=== PATIENT | male | born 1950 | race Caucasian/White ===

== ENCOUNTER 2018-03-24 11:28 | Observation (INO) | payer MEDICARE, OTHER ==
[2018-03-24 12:03] LABS: ADD MAN DIFF? NO
[2018-03-24] MEDS: NITROGLYCERIN 2% 1 GM OINT PKT TD (12:04)
[2018-03-24 12:22] LABS: ANION GAP 17 (8-16); BLOOD UREA NITROGEN 11 mg/dl (7-20); CALCIUM 9.1 mg/dl (8.4-10.2); CARBON DIOXIDE 19 mmol/L (21-31); CHLORIDE 107 mmol/L (97-110); CREATININE 0.88 mg/dl (0.61-1.24); GLUCOSE 138 mg/dl (70-220); POTASSIUM 4.5 mmol/L (3.5-5.1); SODIUM 138 mmol/L (135-144)
[2018-03-24 12:24] LABS: BASOPHILS % 0.2 % (0.0-2.0); EOSINOPHILS # 0.1 10^3/ul (0.0-0.5); EOSINOPHILS % 1.7 % (0.0-7.0); HEMATOCRIT 41.5 % (42.0-52.0); HEMOGLOBIN 14.2 g/dl (14.0-18.0); LYMPHOCYTES # 3.1 10^3/ul (0.8-2.9); LYMPHOCYTES % 38.2 % (15.0-51.0); MEAN CORPUSCULAR HEMOGLOBIN 30.8 pg (29.0-33.0); MEAN CORPUSCULAR HGB CONC 34.2 g/dl (32.0-37.0); MEAN PLATELET VOLUME 9.9 fl (7.4-10.4); MONOCYTE # 0.5 10^3/ul (0.3-0.9); MONOCYTES % 6.5 % (0.0-11.0); NEUTROPHIL # 4.3 10^3/ul (1.6-7.5); NEUTROPHILS % 53.2 % (39.0-77.0); PLATELET COUNT 204 10^3/UL (140-415); RED BLOOD COUNT 4.61 10^6/ul (4.70-6.10); RED CELL DISTRIBUTION WIDTH 12.6 % (11.5-14.5)
[2018-03-24 12:36] LABS: TROPONIN-I < 0.012 ng/ml (0.00-0.12)
[2018-03-24] MEDS: ACETAMINOPHEN 325 MG TAB PO (13:11)
[2018-03-24 18:25] LABS: CREATINE KINASE 66 IU/L (23-200)
[2018-03-24 18:39] LABS: CK INDEX 1.1
[2018-03-24 18:45] LABS: TROPONIN-I < 0.012 ng/ml (0.00-0.12)
[2018-03-24] MEDS ORDERED: DOCUSATE SODIUM 100 MG CAP PO (19:30)
[2018-03-24] MEDS ORDERED: NITROGLYCERIN (SL) 0.4 MG TAB SL (19:30)
[2018-03-24] MEDS ORDERED: LABETALOL HCL 20MG INJ IV (19:30)
[2018-03-24] MEDS ORDERED: morphine 2 MG INJ IV (19:30)
[2018-03-24] MEDS ORDERED: NACL 0.9% 3 ML SYG IV (19:30)
[2018-03-24] MEDS ORDERED: clonAZEPAM 0.5 MG TAB PO (19:30)
[2018-03-24] MEDS ORDERED: MAGNESIUM HYDROXIDE 30ML CUP PO (19:30)
[2018-03-24] MEDS ORDERED: ACETAMINOPHEN 325 MG TAB PO (19:30)
[2018-03-24] MEDS ORDERED: ALBUTEROL/IPRATROPIUM (NEB) 3 ML AMP HHN (19:30)
[2018-03-24] MEDS ORDERED: HYDROCODONE/APAP (5/325) TAB PO (19:30)
[2018-03-24] MEDS ORDERED: ONDANSETRON 4 MG INJ IV (19:30)
[2018-03-24] MEDS ORDERED: ZOLPIDEM 5 MG TAB PO (19:30)
[2018-03-24] MEDS: RANOLAZINE (SR) 500 MG TAB PO (20:50)
[2018-03-24] MEDS: ATORVASTATIN 80 MG TAB PO (20:50)
[2018-03-24] MEDS: TAMSULOSIN (SR) 0.4 MG CAP PO (20:50)
[2018-03-24] MEDS: AMLODIPINE 2.5 MG TAB PO (20:50)
[2018-03-24] MEDS: RANITIDINE 150 MG TAB PO (20:51)
[2018-03-24] MEDS: MONTELUKAST 10 MG TAB PO (20:51)
[2018-03-25 00:08] LABS: CREATINE KINASE 65 IU/L (23-200)
[2018-03-25 00:23] LABS: CK-MB 0.66 ng/ml (0.0-2.4); TROPONIN-I < 0.012 ng/ml (0.00-0.12)
[2018-03-25 05:18] LABS: ADD MAN DIFF? NO
[2018-03-25 05:18] LABS: WHITE BLOOD COUNT 7.4 10^3/ul (4.8-10.8)
[2018-03-25 05:19] LABS: BASOPHILS % 0.4 % (0.0-2.0); EOSINOPHILS # 0.2 10^3/ul (0.0-0.5); HEMATOCRIT 41.7 % (42.0-52.0); LYMPHOCYTES # 2.7 10^3/ul (0.8-2.9); LYMPHOCYTES % 35.9 % (15.0-51.0); MEAN CORPUSCULAR HGB CONC 33.6 g/dl (32.0-37.0); MEAN CORPUSCULAR VOLUME 92.5 fl (82.0-101.0); MONOCYTE # 0.5 10^3/ul (0.3-0.9); MONOCYTES % 6.5 % (0.0-11.0); NEUTROPHIL # 4.1 10^3/ul (1.6-7.5); NEUTROPHILS % 54.9 % (39.0-77.0); PLATELET COUNT 179 10^3/UL (140-415); RED BLOOD COUNT 4.51 10^6/ul (4.70-6.10); RED CELL DISTRIBUTION WIDTH 12.8 % (11.5-14.5)
[2018-03-25 05:47] LABS: HEMOGLOBIN A1C 5.3 % (0-5.9)
[2018-03-25 05:48] LABS: ANION GAP 13 (8-16); BLOOD UREA NITROGEN 14 mg/dl (7-20); CALCIUM 9.2 mg/dl (8.4-10.2); CARBON DIOXIDE 26 mmol/L (21-31); CHLORIDE 109 mmol/L (97-110); CHOL/HDL RATIO 3.3 RATIO; CHOLESTEROL 171 mg/dl (100-200); CREATININE 1.08 mg/dl (0.61-1.24); GLUCOSE 149 mg/dl (70-220); HDL CHOLESTEROL 51 mg/dl (30-78); LDL CHOLESTEROL,CALCULATED 82 mg/dl; PHOSPHORUS 4.1 mg/dl (2.5-4.9); POTASSIUM 4.6 mmol/L (3.5-5.1); SODIUM 143 mmol/L (135-144); TRIGLYCERIDES 191 mg/dl (0-149)
[2018-03-25] MEDS: FISH OIL 1,000 MG CAP PO (08:44)
[2018-03-25] MEDS: RANITIDINE 150 MG TAB PO ×2 (08:44→21:09)
[2018-03-25] MEDS: ISOSORBIDE MONONITRATE(SR)60 MG TAB PO (08:44)
[2018-03-25] MEDS: METHIMAZOLE 5 MG TAB PO (08:45)
[2018-03-25] MEDS: BENAZEPRIL 10 MG TAB PO (08:46)
[2018-03-25] MEDS: CLOPIDOGREL 75 MG TAB PO (08:48)
[2018-03-25] MEDS: AMLODIPINE 2.5 MG TAB PO (08:48)
[2018-03-25] MEDS: RANOLAZINE (SR) 500 MG TAB PO ×2 (08:49→21:00)
[2018-03-25] MEDS: ASPIRIN (EC) 81 MG TAB PO (09:30)
[2018-03-25] MEDS: TAMSULOSIN (SR) 0.4 MG CAP PO (21:00)
[2018-03-25] MEDS: ATORVASTATIN 80 MG TAB PO (21:08)
[2018-03-25] MEDS: MONTELUKAST 10 MG TAB PO (21:09)
[2018-03-26] MEDS: RANOLAZINE (SR) 500 MG TAB PO (10:24)
[2018-03-26] MEDS: ASPIRIN (EC) 81 MG TAB PO (10:24)
[2018-03-26] MEDS: RANITIDINE 150 MG TAB PO (10:24)
[2018-03-26] MEDS: AMLODIPINE 2.5 MG TAB PO (10:25)
[2018-03-26] MEDS: METHIMAZOLE 5 MG TAB PO (10:25)
[2018-03-26] MEDS: ISOSORBIDE MONONITRATE(SR)60 MG TAB PO (11:21)
[2018-03-26] MEDS: CLOPIDOGREL 75 MG TAB PO (11:22)
[2018-03-26] MEDS: FISH OIL 1,000 MG CAP PO (11:22)
[2018-03-26] MEDS: BENAZEPRIL 10 MG TAB PO (11:22)
[2018-03-26] MEDS ORDERED: MIDAZOLAM 1 MG/ML 2 ML INJ (13:25)
[2018-03-26] MEDS ORDERED: LIDOCAINE 1% (MDV) 20 ML INJ (13:25)
[2018-03-26] MEDS ORDERED: HEPARIN 1000 UNITS/ML 10 ML INJ (13:25)
[2018-03-26] MEDS ORDERED: IODIXANOL LOCM 100 ML BTL (13:25)
[2018-03-26] MEDS ORDERED: NITROGLYCERIN (IC) 100 MCG/ML INJ (13:26)
[2018-03-26] MEDS ORDERED: VERAPAMIL 5 MG INJ (13:26)
[2018-03-26] MEDS ORDERED: FENTAnyl 50 MCG/ML VIAL (13:26)
[2018-03-26] MEDS ORDERED: SOD CHLORIDE 0.9% 1,500 ML (14:04)
[2018-03-26] MEDS: SOD CHLORIDE 0.9% 1,000 ML IV (14:42)
[2018-03-26] MEDS ORDERED: ONDANSETRON 4 MG INJ IV (15:00)
[2018-03-26] MEDS ORDERED: ACETAMINOPHEN 325 MG TAB PO (15:00)
[2018-03-26] MEDS ORDERED: morphine 2 MG INJ IV (15:00)
[2018-03-26] MEDS ORDERED: AL HYDROX/MG HYDROX/SIMETH 30 ML CUP PO (15:00)
== END 2018-03-26 18:00 | disposition home or self-care (01) ==
LOC: E/R 11:28 → MS3 14:01
DX: I25.119 Atherosclerotic heart disease of native coronary artery with unspecified angina pectoris (principal); I10 Essential (primary) hypertension; N40.0 Benign prostatic hyperplasia without lower urinary tract symptoms; E03.9 Hypothyroidism, unspecified; J44.9 Chronic obstructive pulmonary disease, unspecified; E78.5 Hyperlipidemia, unspecified; I25.10 Atherosclerotic heart disease of native coronary artery without angina pectoris; Z95.5 Presence of coronary angioplasty implant and graft; Z79.82 Long term (current) use of aspirin; Z87.891 Personal history of nicotine dependence; Z79.02 Long term (current) use of antithrombotics/antiplatelets
CPT/HCPCS: 36415; 71045; 80048; 80061; 82550; 82553; 83036; 83735; 84100; 84484; 85025; 93005; 93458; 99285-25

== ENCOUNTER → 2018-08-06 | Outpatient (CLI) | payer MEDICARE, OTHER | END | disposition home or self-care (01) | LOC: U/S 08:29 | DX: R10.9 Unspecified abdominal pain (principal) | CPT/HCPCS: 76705 ==

== ENCOUNTER 2019-03-09 09:17 | Inpatient (IN) | payer MEDICARE, OTHER ==
[2019-03-09 09:38] LABS: ADD MAN DIFF? NO
[2019-03-09] MEDS: NITROGLYCERIN (SL) 0.4 MG TAB SL ×4 (09:39→18:48)
[2019-03-09 09:40] LABS: BASOPHILS % 0.3 % (0.0-2.0); EOSINOPHILS # 0.1 10^3/ul (0.0-0.5); HEMATOCRIT 41.1 % (42.0-52.0); HEMOGLOBIN 14.2 g/dl (14.0-18.0); LYMPHOCYTES # 2.9 10^3/ul (0.8-2.9); LYMPHOCYTES % 36.6 % (15.0-51.0); MEAN CORPUSCULAR HEMOGLOBIN 30.7 pg (29.0-33.0); MEAN CORPUSCULAR HGB CONC 34.5 g/dl (32.0-37.0); MONOCYTE # 0.6 10^3/ul (0.3-0.9); MONOCYTES % 7.1 % (0.0-11.0); NEUTROPHIL # 4.4 10^3/ul (1.6-7.5); NEUTROPHILS % 54.7 % (39.0-77.0); PLATELET COUNT 182 10^3/UL (140-415); RED BLOOD COUNT 4.62 10^6/ul (4.70-6.10); RED CELL DISTRIBUTION WIDTH 12.6 % (11.5-14.5)
[2019-03-09] MEDS: NITROGLYCERIN 2% 1 GM OINT PKT TD (09:40)
[2019-03-09] MEDS ORDERED: ONDANSETRON 4 MG INJ (09:41)
[2019-03-09] MEDS ORDERED: morphine 4 MG/ML VIAL (09:42)
[2019-03-09] MEDS: morphine 4 MG/ML VIAL IV (09:42)
[2019-03-09] MEDS: ONDANSETRON 4 MG INJ IV ×2 (09:42→18:21)
[2019-03-09] MEDS: HYDROmorphONE 2 MG/ML SYG IV (10:02)
[2019-03-09 10:14] LABS: ANION GAP 9 (5-13); BLOOD UREA NITROGEN 16 mg/dl (7-20); CALCIUM 9.4 mg/dl (8.4-10.2); CARBON DIOXIDE 19 mmol/L (21-31); CHLORIDE 111 mmol/L (97-110); CREATININE 0.82 mg/dl (0.61-1.24); Estimated GFR > 60 mL/min (>60); GLUCOSE 84 mg/dl (70-220); POTASSIUM 4.2 mmol/L (3.5-5.1); SODIUM 139 mmol/L (135-144)
[2019-03-09] MEDS: SOD CHLORIDE 0.9% 1,000 ML IV (10:16)
[2019-03-09 10:25] LABS: TROPONIN-I < 0.012 ng/ml (0.000-0.120)
[2019-03-09] MEDS ORDERED: ONDANSETRON 4 MG INJ IV (12:00)
[2019-03-09] MEDS ORDERED: ACETAMINOPHEN 325 MG TAB PO ×2 (12:00→16:30)
[2019-03-09] MEDS ORDERED: morphine 2 MG INJ IV (16:30)
[2019-03-09] MEDS ORDERED: NACL 0.9% 3 ML SYG IV (16:30)
[2019-03-09] MEDS ORDERED: ZOLPIDEM 5 MG TAB PO (16:30)
[2019-03-09] MEDS ORDERED: HYDROCODONE/APAP (5/325) TAB PO (16:30)
[2019-03-09] MEDS: CLOPIDOGREL 75 MG TAB PO (16:30)
[2019-03-09 16:45] LABS: CREATINE KINASE 60 IU/L (23-200)
[2019-03-09 16:58] LABS: CK-MB 0.57 ng/ml (0.0-2.4); TROPONIN-I < 0.012 ng/ml (0.000-0.120)
[2019-03-09] MEDS: HYDROmorphONE 1 MG/ML SYG IV (17:03)
[2019-03-09 19:55] LABS: TROPONIN-I < 0.012 ng/ml (0.000-0.120)
[2019-03-09] MEDS: BENAZEPRIL 10 MG TAB PO (21:00)
[2019-03-09] MEDS ORDERED: NON-FORMULARY/PATIENT OWN MED (Rosuvastatin Calcium* (Crestor*) 20 MG) PO (21:00)
[2019-03-09] MEDS: MONTELUKAST 10 MG TAB PO (21:00)
[2019-03-09] MEDS: SACUBITRIL/VALSARTAN (24mg-26mg) TABLET PO ×2 (21:00→21:04)
[2019-03-09] MEDS: TAMSULOSIN (SR) 0.4 MG CAP PO (21:04)
[2019-03-09] MEDS: clonAZEPAM 0.5 MG TAB PO (21:04)
[2019-03-09] MEDS: RANOLAZINE (SR) 500 MG TAB PO (21:05)
[2019-03-09] MEDS: RANITIDINE 150 MG TAB PO (21:06)
[2019-03-09] MEDS: ATORVASTATIN 40 MG TAB PO (21:06)
[2019-03-09 22:50] LABS: CK-MB 1.04 ng/ml (0.0-2.4)
[2019-03-09 23:31] LABS: CK INDEX 1.3; CREATINE KINASE 81 IU/L (23-200)
[2019-03-09 23:32] LABS: TROPONIN-I < 0.012 ng/ml (0.000-0.120)
[2019-03-10 05:59] LABS: ADD MAN DIFF? NO
[2019-03-10 06:15] LABS: WHITE BLOOD COUNT 8.2 10^3/ul (4.8-10.8)
[2019-03-10 06:15] LABS: BASOPHILS % 0.4 % (0.0-2.0); EOSINOPHILS # 0.1 10^3/ul (0.0-0.5); EOSINOPHILS % 1.5 % (0.0-7.0); HEMATOCRIT 42.6 % (42.0-52.0); HEMOGLOBIN 14.4 g/dl (14.0-18.0); LYMPHOCYTES # 2.9 10^3/ul (0.8-2.9); LYMPHOCYTES % 35.6 % (15.0-51.0); MEAN CORPUSCULAR HEMOGLOBIN 31.1 pg (29.0-33.0); MEAN CORPUSCULAR HGB CONC 33.8 g/dl (32.0-37.0); MEAN PLATELET VOLUME 10.5 fl (7.4-10.4); MONOCYTE # 0.7 10^3/ul (0.3-0.9); MONOCYTES % 8.4 % (0.0-11.0); NEUTROPHIL # 4.5 10^3/ul (1.6-7.5); PLATELET COUNT 167 10^3/UL (140-415); RED BLOOD COUNT 4.63 10^6/ul (4.70-6.10); RED CELL DISTRIBUTION WIDTH 12.7 % (11.5-14.5)
[2019-03-10 06:17] LABS: CHOLESTEROL 163 mg/dl (100-200)
[2019-03-10 06:17] LABS: CHOL/HDL RATIO 3.8 RATIO; HDL CHOLESTEROL 42 mg/dl (30-78); LDL CHOLESTEROL,CALCULATED 90 mg/dl; TRIGLYCERIDES 154 mg/dl (0-149)
[2019-03-10 07:13] LABS: ANION GAP 8 (5-13); BLOOD UREA NITROGEN 17 mg/dl (7-20); CALCIUM 9.7 mg/dl (8.4-10.2); CARBON DIOXIDE 27 mmol/L (21-31); CHLORIDE 109 mmol/L (97-110); Estimated GFR > 60 mL/min (>60); GLUCOSE 91 mg/dl (70-220); PHOSPHORUS 4.3 mg/dl (2.5-4.9); POTASSIUM 4.7 mmol/L (3.5-5.1); SODIUM 144 mmol/L (135-144)
[2019-03-10 07:31] LABS: HEMOGLOBIN A1C 5.4 % (0-5.9)
[2019-03-10] MEDS ORDERED: OLOPATADINE HCL BOTH EYES (09:00)
[2019-03-10] MEDS: SACUBITRIL/VALSARTAN (24mg-26mg) TABLET PO ×3 (09:00→21:00)
[2019-03-10] MEDS: FUROSEMIDE 20 MG TAB PO (09:01)
[2019-03-10] MEDS: CLOPIDOGREL 75 MG TAB PO (09:02)
[2019-03-10] MEDS: BENAZEPRIL 10 MG TAB PO ×2 (09:02→21:00)
[2019-03-10] MEDS: RANOLAZINE (SR) 500 MG TAB PO ×2 (09:02→22:42)
[2019-03-10] MEDS: AMLODIPINE 2.5 MG TAB PO (09:02)
[2019-03-10] MEDS: ISOSORBIDE MONONITRATE(SR)30 MG TAB PO (09:03)
[2019-03-10] MEDS: PYRIDOXINE 50 MG TAB PO (09:03)
[2019-03-10] MEDS: PROPYLTHIOURACIL 50 MG TAB PO (09:03)
[2019-03-10] MEDS: RANITIDINE 150 MG TAB PO ×2 (09:03→22:43)
[2019-03-10] MEDS: FISH OIL 1,000 MG CAP PO (09:03)
[2019-03-10] MEDS: ASPIRIN (EC) 81 MG TAB PO (09:15)
[2019-03-10] MEDS: NITROGLYCERIN (SL) 0.4 MG TAB SL (10:32)
[2019-03-10] MEDS: NITROGLYCERIN 0.2 MG/HR PATCH TRANSDERM (10:54)
[2019-03-10] MEDS ORDERED: NITROGLYCERIN 0.4 MG/HR PATCH TRANSDERM (11:00)
[2019-03-10] MEDS: morphine 2 MG INJ IV (14:35)
[2019-03-10] MEDS: MONTELUKAST 10 MG TAB PO (21:00)
[2019-03-10] MEDS: clonAZEPAM 0.5 MG TAB PO (21:00)
[2019-03-10] MEDS: ATORVASTATIN 40 MG TAB PO (22:41)
[2019-03-10] MEDS: TAMSULOSIN (SR) 0.4 MG CAP PO (22:42)
[2019-03-11 05:56] LABS: ADD MAN DIFF? NO
[2019-03-11 06:02] LABS: PLATELET COUNT 166 10^3/UL (140-415)
[2019-03-11 06:04] LABS: BASOPHILS % 0.4 % (0.0-2.0); EOSINOPHILS # 0.2 10^3/ul (0.0-0.5); HEMATOCRIT 42.3 % (42.0-52.0); LYMPHOCYTES % 37.4 % (15.0-51.0); MEAN CORPUSCULAR HEMOGLOBIN 30.4 pg (29.0-33.0); MEAN CORPUSCULAR HGB CONC 33.1 g/dl (32.0-37.0); MEAN PLATELET VOLUME 10.6 fl (7.4-10.4); MONOCYTE # 0.6 10^3/ul (0.3-0.9); MONOCYTES % 7.1 % (0.0-11.0); NEUTROPHIL # 4.3 10^3/ul (1.6-7.5); NEUTROPHILS % 52.7 % (39.0-77.0); PLATELET COUNT 163 10^3/UL (140-415); RED CELL DISTRIBUTION WIDTH 12.7 % (11.5-14.5)
[2019-03-11 06:04] LABS: WHITE BLOOD COUNT 8.1 10^3/ul (4.8-10.8)
[2019-03-11 06:23] LABS: INR 1.14; PROTIME 14.7 Sec (11.9-14.9); PT RATIO 1.1
[2019-03-11 06:24] LABS: PARTIAL THROMBOPLASTIN TIME 30.7 Sec (23.0-35.0)
[2019-03-11 06:28] LABS: THROMBIN TIME 15.6 SEC (13.8-19.1)
[2019-03-11 06:53] LABS: ALANINE AMINOTRANSFERASE 27 IU/L (13-69); ALBUMIN/GLOBULIN RATIO 1.42; ALKALINE PHOSPHATASE 46 IU/L (42-121); ANION GAP 11 (5-13); ASPARTATE AMINO TRANSFERASE 23 IU/L (15-46); BILIRUBIN,INDIRECT 0.3 mg/dl (0-1.1); BILIRUBIN,TOTAL 0.3 mg/dl (0.2-1.3); BLOOD UREA NITROGEN 18 mg/dl (7-20); CALCIUM 8.8 mg/dl (8.4-10.2); CARBON DIOXIDE 23 mmol/L (21-31); CHLORIDE 109 mmol/L (97-110); CREATININE 0.97 mg/dl (0.61-1.24); Estimated GFR > 60 mL/min (>60); GLUCOSE 115 mg/dl (70-220); POTASSIUM 4.5 mmol/L (3.5-5.1); SODIUM 143 mmol/L (135-144); TOTAL PROTEIN 6.8 g/dl (6.1-8.1)
[2019-03-11] MEDS ORDERED: HEPARIN 1000 UNITS/ML 10 ML INJ ×2 (08:41→12:05)
[2019-03-11] MEDS ORDERED: NITROGLYCERIN (IC) 100 MCG/ML INJ ×2 (08:42→12:06)
[2019-03-11] MEDS ORDERED: LIDOCAINE 1% (MDV) 20 ML INJ (08:42)
[2019-03-11] MEDS ORDERED: VERAPAMIL 5 MG INJ ×2 (08:42→12:06)
[2019-03-11] MEDS ORDERED: FENTAnyl 50 MCG/ML VIAL ×2 (08:42→12:05)
[2019-03-11] MEDS ORDERED: MIDAZOLAM 1 MG/ML 2 ML INJ ×2 (08:42→12:05)
[2019-03-11] MEDS ORDERED: IODIXANOL LOCM 100 ML BTL ×2 (08:42→13:27)
[2019-03-11] MEDS: FISH OIL 1,000 MG CAP PO (09:00)
[2019-03-11] MEDS: OLOPATADINE 0.2% (ONCE A DAY) OPHTH DROP 2.5 ML BOTH EYES (09:02)
[2019-03-11] MEDS: RANOLAZINE (SR) 500 MG TAB PO ×2 (09:02→21:52)
[2019-03-11] MEDS: ASPIRIN (EC) 81 MG TAB PO (09:02)
[2019-03-11] MEDS: ISOSORBIDE MONONITRATE(SR)30 MG TAB PO (09:03)
[2019-03-11] MEDS: RANITIDINE 150 MG TAB PO ×2 (09:03→20:59)
[2019-03-11] MEDS: PROPYLTHIOURACIL 50 MG TAB PO (09:03)
[2019-03-11] MEDS: BENAZEPRIL 10 MG TAB PO (09:03)
[2019-03-11] MEDS: CLOPIDOGREL 75 MG TAB PO (09:03)
[2019-03-11] MEDS: SACUBITRIL/VALSARTAN (24mg-26mg) TABLET PO ×2 (09:03→20:59)
[2019-03-11] MEDS: FUROSEMIDE 20 MG TAB PO (09:03)
[2019-03-11] MEDS: AMLODIPINE 2.5 MG TAB PO (09:04)
[2019-03-11] MEDS: PYRIDOXINE 50 MG TAB PO (09:04)
[2019-03-11] MEDS: NITROGLYCERIN 0.2 MG/HR PATCH TRANSDERM (09:05)
[2019-03-11] MEDS: morphine 2 MG INJ IV (09:08)
[2019-03-11] MEDS: ONDANSETRON 4 MG INJ IV (09:08)
[2019-03-11] MEDS ORDERED: SOD CHLORIDE 0.9% 500 ML (09:50)
[2019-03-11] MEDS ORDERED: BIVALIRUDIN 250MG /NS 50 ML 50 ML IVPB (09:50)
[2019-03-11] MEDS ORDERED: IOHEXOL 350MG/ML 50 ML BTL ×2 (09:50→13:27)
[2019-03-11] MEDS ORDERED: TICAGRELOR 90 MG TABLET (10:34)
[2019-03-11] MEDS ORDERED: ASPIRIN 81 MG TAB (10:34)
[2019-03-11] MEDS ORDERED: ADENOSINE 30 ML ×2 (13:27→13:32)
[2019-03-11] MEDS ORDERED: ONDANSETRON 4 MG INJ IV (14:00)
[2019-03-11] MEDS ORDERED: AL HYDROX/MG HYDROX/SIMETH 30 ML CUP PO (14:00)
[2019-03-11] MEDS ORDERED: morphine 2 MG INJ IV (14:00)
[2019-03-11] MEDS ORDERED: OXYCODONE/ACETAMINOPHEN (5/325) TAB PO (14:00)
[2019-03-11] MEDS ORDERED: ACETAMINOPHEN 325 MG TAB PO (14:00)
[2019-03-11] MEDS: SOD CHLORIDE 0.9% 1,000 ML IV (14:16)
[2019-03-11] MEDS: NITROGLYCERIN (SL) 0.4 MG TAB SL (18:00)
[2019-03-11] MEDS: ATORVASTATIN 40 MG TAB PO (20:59)
[2019-03-11] MEDS: TAMSULOSIN (SR) 0.4 MG CAP PO (20:59)
[2019-03-11] MEDS: clonAZEPAM 0.5 MG TAB PO (21:00)
[2019-03-11] MEDS: MONTELUKAST 10 MG TAB PO (21:00)
[2019-03-11 21:57] LABS: POTASSIUM 4.6 mmol/L (3.5-5.1)
[2019-03-12 05:06] LABS: ADD MAN DIFF? NO
[2019-03-12 05:18] LABS: WHITE BLOOD COUNT 8.2 10^3/ul (4.8-10.8)
[2019-03-12 05:18] LABS: BASOPHILS % 0.4 % (0.0-2.0); EOSINOPHILS # 0.1 10^3/ul (0.0-0.5); EOSINOPHILS % 1.6 % (0.0-7.0); HEMATOCRIT 42.8 % (42.0-52.0); HEMOGLOBIN 14.3 g/dl (14.0-18.0); LYMPHOCYTES # 2.3 10^3/ul (0.8-2.9); LYMPHOCYTES % 27.7 % (15.0-51.0); MEAN CORPUSCULAR HEMOGLOBIN 30.5 pg (29.0-33.0); MEAN CORPUSCULAR HGB CONC 33.4 g/dl (32.0-37.0); MEAN CORPUSCULAR VOLUME 91.3 fl (82.0-101.0); MEAN PLATELET VOLUME 10.3 fl (7.4-10.4); MONOCYTE # 0.7 10^3/ul (0.3-0.9); MONOCYTES % 8.1 % (0.0-11.0); NEUTROPHIL # 5.1 10^3/ul (1.6-7.5); NEUTROPHILS % 61.8 % (39.0-77.0); PLATELET COUNT 164 10^3/UL (140-415); RED BLOOD COUNT 4.69 10^6/ul (4.70-6.10); RED CELL DISTRIBUTION WIDTH 12.6 % (11.5-14.5)
[2019-03-12 05:50] LABS: ANION GAP 7 (5-13); BLOOD UREA NITROGEN 15 mg/dl (7-20); CARBON DIOXIDE 26 mmol/L (21-31); CHLORIDE 109 mmol/L (97-110); CREATININE 1.02 mg/dl (0.61-1.24); Estimated GFR > 60 mL/min (>60); GLUCOSE 91 mg/dl (70-220); POTASSIUM 4.8 mmol/L (3.5-5.1); SODIUM 142 mmol/L (135-144)
[2019-03-12] MEDS: CLOPIDOGREL 75 MG TAB PO (10:31)
[2019-03-12] MEDS: PYRIDOXINE 50 MG TAB PO (10:31)
[2019-03-12] MEDS: SACUBITRIL/VALSARTAN (24mg-26mg) TABLET PO (10:31)
[2019-03-12] MEDS: FISH OIL 1,000 MG CAP PO (10:32)
[2019-03-12] MEDS: ASPIRIN (EC) 81 MG TAB PO (10:33)
[2019-03-12] MEDS: PROPYLTHIOURACIL 50 MG TAB PO (10:33)
[2019-03-12] MEDS: RANITIDINE 150 MG TAB PO (10:33)
[2019-03-12] MEDS: ISOSORBIDE MONONITRATE(SR)30 MG TAB PO (10:33)
[2019-03-12] MEDS: FUROSEMIDE 20 MG TAB PO (10:34)
[2019-03-12] MEDS: AMLODIPINE 2.5 MG TAB PO (10:34)
[2019-03-12] MEDS: NITROGLYCERIN 0.2 MG/HR PATCH TRANSDERM (10:36)
[2019-03-14] MEDS ORDERED: ERGOCALCIFEROL 50,000 UNIT CAP PO (09:00)
== END 2019-03-12 11:30 | disposition home or self-care (01) | DRG 247 ==
LOC: E/R 09:17 → ICU 03-11 17:40 → 6WM 11:51
PROC: 027035Z Dilation of Coronary Artery, One Artery with Two Drug-eluting Intraluminal Devices, Percutaneous Approach (ICD-10-PCS; principal; 2019-03-11 11:52)
PROC: 4A023N7 Measurement of Cardiac Sampling and Pressure, Left Heart, Percutaneous Approach (ICD-10-PCS; 2019-03-11 11:52)
PROC: B211YZZ Fluoroscopy of Multiple Coronary Arteries using Other Contrast (ICD-10-PCS; 2019-03-11 11:52)
PROC: B240ZZ3 Ultrasonography of Single Coronary Artery, Intravascular (ICD-10-PCS; 2019-03-11 11:52)
DX: T82.855A Stenosis of coronary artery stent, initial encounter (principal); I42.9 Cardiomyopathy, unspecified; I25.10 Atherosclerotic heart disease of native coronary artery without angina pectoris; I10 Essential (primary) hypertension; E78.5 Hyperlipidemia, unspecified; N40.0 Benign prostatic hyperplasia without lower urinary tract symptoms; E03.9 Hypothyroidism, unspecified; J44.9 Chronic obstructive pulmonary disease, unspecified; E66.9 Obesity, unspecified; Z95.5 Presence of coronary angioplasty implant and graft; Y83.2 Surgical operation with anastomosis, bypass or graft as the cause of abnormal reaction of the patient, or of later complication, without mention of misadventure at the time of the procedure; Z68.32 Body mass index [BMI] 32.0-32.9, adult
CPT/HCPCS: 36415; 71045; 80048; 80053; 80061; 82550; 82553; 82962; 83036; 83735; 84100; 84132; 84484; 85025; 85049; 85610; 85670; 85730; 87081; 92978; 93005; 93306; 93458; 96374; 96375; 99285-25; G0378